=== PATIENT | female | born 1965 ===

== ENCOUNTER 2024-06-27 08:31 | Emergency (ER) | payer SELFPAY ==
[~2024-06-27] VITALS: Ht 152.4 cm; Wt 86.2 kg
[2024-06-27] MEDS ORDERED: Metoclopramide Hydrochloride 10 MG/2 ML AMP IV ONE (09:15)
[2024-06-27] MEDS ORDERED: diphenhydrAMINE hydrochloride 50 MG/ML VIAL IV ONE (09:15)
[2024-06-27] MEDS ORDERED: SODIUM CHLORIDE 0.9% 1,000 ML IV ONE (09:15)
[2024-06-27] MEDS ORDERED: MORPHINE Sulfate 2 MG/ML SYR IV ONE (09:15)
[2024-06-27] MEDS ORDERED: IOHEXOL 300 MG/ML 100 ML VIAL IV ONE (09:25)
[2024-06-27 09:31] LABS: BASO % 0.3 % (0.0-1.0); EOS # 0.2 10*3/uL (0.0-0.4); EOS % 2.5 % (1.0-4.0); HEMATOCRIT 35.8 % (37.0-47.0); LYMPH # 2.3 10*3/uL (1.3-4.4); LYMPH % 34.1 % (27.0-41.0); MEAN CELL VOLUME 80.4 fl (81.0-99.0); MEAN CORPUSCULAR HGB 24.9 pg (27.0-31.0); MEAN PLATELET VOLUME 10.7 fl (9.6-12.3); MONO # 0.5 10*3/uL (0.1-1.0); MONO % 7.1 % (3.0-9.0); NEUT # 3.8 10*3/uL (2.3-7.9); NEUT % 55.7 % (47.0-73.0); PLATELET COUNT AUTOMATED 258 10*3/uL (130-400); RED BLOOD COUNT 4.45 10*6/uL (4.10-5.10); RED CELL DISTRI WIDTH 15.2 % (0-14.5); WHITE BLOOD COUNT 6.8 10*3/uL (4.8-10.8)
[2024-06-27 09:46] LABS: BUN 10 mg/dl (9-23); CHLORIDE 106 mmol/L (98-107); LIPASE 34 U/L (12-53); POTASSIUM 3.6 mmol/L (3.4-5.1)
[2024-06-27] MEDS ORDERED: METRONIDAZOLE500 M1 PO (11:12)
[2024-06-27] MEDS ORDERED: MELOXICAM15 MG PO (11:12)
[2024-06-27] MEDS ORDERED: Ondansetron4 MG PO (11:12)
[2024-06-27] MEDS ORDERED: PEPCID20 MG PO (11:12)
[2024-06-27] MEDS ORDERED: CIPRO500 MG PO (11:12)
[2024-06-27] MEDS ORDERED: Ciprofloxacin Hydrochloride 500 MG TAB PO ONE (11:15)
[2024-06-27] MEDS ORDERED: METRONIDAZOLE 500 MG TAB PO ONE (11:15)
== END 2024-06-27 13:33 | disposition home or self-care (01) ==
LOC: ED 08:31
PROVIDERS: Emergency Medicine
DX: R10.31 Right lower quadrant pain (principal); R10.32 Left lower quadrant pain; R11.2 Nausea with vomiting, unspecified; R19.7 Diarrhea, unspecified; I10 Essential (primary) hypertension